=== PATIENT | female | born 1950 | race Caucasian/White ===

== ENCOUNTER 2017-03-11 05:33 | Emergency (ER) | payer MEDICARE, BC ==
[2017-03-11] MEDS ORDERED: cloNIDine 0.1 MG Tab PO ONE (06:08)
--- NOTE | 2017-03-11 06:23 | EDM.PDOC ---
ED HPI GENERAL MEDICAL PROBLEM - General Chief Complaint: ENT Problem Stated Complaint: BLOODY NOSE Time Seen by Provider: 03/11/17 06:05 Source of Information: Reports: Patient, Old Records History Limitations: Reports: No Limitations - History of Present Illness INITIAL COMMENTS - FREE TEXT/NARRATIVE: 66 yo female on both aspirin and Plavix with a PHx of epistaxis presents with a nosebleed that began at home about 0430h today. Had blood out of both nostrils and posteriorly. Most of the blood was from the R anterior nares. Thinks she coughed to start the bleeding. Has not missed any of her BP meds. A recent BP was in the upper 130's(one week ago). Onset: Today Onset Date: 03/11/17 Onset Time: 04:30 Duration: Minutes: Location: Reports: Face (nares) Quality: Reports: Other (no pain) Severity: Moderate Improves with: Reports: Other (direct pressure.) Worsens with: Reports: Other (unknown) Context: Reports: Other (on Plavix and ASA and has had nosebleeds before. 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 (see below) (direct pressure.) - Related Data Allergies Allergy/AdvReac Type Severity Reaction Status Date / Time fentanyl Allergy Diaphoresis Verified 03/11/17 05:48 metoprolol tartrate Allergy heartburn Verified 03/11/17 05:48 [From Lopressor] Sulfa (Sulfonamide Allergy Hives Verified 03/11/17 05:48 Antibiotics) Home Meds: Home Meds Albuterol Sulfate [Ventolin Hfa] 2 puff IH Q4H PRN 11/13/13 [History] Aspirin 325 mg PO DAILY 11/13/13 [History] Atenolol 100 mg PO BID 11/13/13 [History] Citalopram Hydrobromide [Celexa] 40 mg PO DAILY 11/13/13 [History] Clopidogrel [Plavix] 75 mg PO DAILY 11/13/13 [History] Hydrochlorothiazide 12.5 mg PO DAILY 11/13/13 [History] Levothyroxine Sodium [Synthroid] 25 mcg PO ACBRK 11/13/13 [History] Lisinopril 5 mg PO DAILY 11/13/13 [History] Simvastatin [Zocor] 40 mg PO BEDTIME 11/13/13 [History] Past Medical History Cardiovascular History: Reports: High Cholesterol, Hypertension, Stents Other Cardiovascular History: CAROTID ENDARTERECTOMY 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: Other OB/BYN History: C SECTION Psychiatric History: Reports: Depression Endocrine/Metabolic History: Reports: Hypoparathyroidism - Infectious Disease History Infectious Disease History: Reports: Chicken Pox, Measles - Past Surgical History HEENT Surgical History: Reports: Tonsillectomy Cardiovascular Surgical History: Reports: Coronary Artery Stent GI Surgical History: Reports: Cholecystectomy Social & Family History - Tobacco Use Smoking Status *Q: Current Every Day Smoker Years of Tobacco use: 50 Packs/Tins Daily: 1 Second Hand Smoke Exposure: Yes - Alcohol Use Days Per Week of Alcohol Use: 0 - Recreational Drug Use Recreational Drug Use: No ED ROS ENT - Review of Systems Review Of Systems: See Below Constitutional: Reports: No Symptoms HEENT: Reports: Nosebleed. Denies: Nose Pain Respiratory: Reports: No Symptoms Cardiovascular: Reports: No Symptoms GI/Abdominal: Reports: No Symptoms : Reports: No Symptoms Skin: Reports: No Symptoms Neurological: Reports: No Symptoms ED EXAM, ENT - Physical Exam Exam: See Below Exam Limited By: No Limitations General Appearance: Alert, WD/WN, No Apparent Distress Eye Exam: Bilateral Eye: Normal Inspection Ears: Normal External Exam, Normal Canal, Hearing Grossly Normal Nose: Dried Blood (R nares only). No: Nasal Deformity, Nasal Swelling, Nasal Tenderness, Nasal Ecchymosis Mouth/Throat: Normal Inspection, Normal Lips, Normal Oropharynx Head: Atraumatic, Normocephalic Neck: Normal Inspection Course - Vital Signs Text/Narrative:: Clonidine 0.1 mg po, Bacitracin in R nares, Viscous xylocaine 10 ml R nares. Rhino Rocket 7.5 cm placed. Last Recorded V/S: Last Vital Signs Temp 36.2 C 03/11/17 06:44 Pulse 65 03/11/17 06:44 Resp 15 03/11/17 06:44 BP 135/61 03/11/17 06:44 Pulse Ox 96 03/11/17 06:44 - Orders/Labs/Meds Orders: Active Orders 24 hr Category Date Time Status Lidocaine 2% [Xylocaine 2% Viscous] Med 03/11/17 06:51 Once 15 ml PO ONETIME ONE Meds: Medications Discontinued Medications Generic Name Dose Route Start Last Admin Trade Name Freq PRN Reason Stop Dose Admin Bacitracin 1 dose 03/11/17 06:30 03/11/17 06:37 Bacitracin Oint 1 Gm TOP 03/11/17 06:31 1 dose ONETIME ONE Administration Clonidine HCl 0.1 mg 03/11/17 06:08 03/11/17 06:11 Catapres PO 03/11/17 06:09 0.1 mg ONETIME ONE Administration Hydrogen Peroxide 3 ml 03/11/17 06:34 03/11/17 06:38 Proxacol 3% TOP 03/11/17 06:35 3 ml ONETIME PRN Administration Bleeding Departure - Departure Time of Disposition: 07:15 Disposition: Home, Self-Care 01 Condition: Good Clinical Impression: Epistaxis - Discharge Information Forms: ED Department Discharge - My Orders Last 24 Hours: My Active Orders 03/11/17 06:51 Lidocaine 2% [Xylocaine 2% Viscous] 15 ml PO ONETIME ONE - Assessment/Plan Last 24 Hours: My Active Orders 03/11/17 06:51 Lidocaine 2% [Xylocaine 2% Viscous] 15 ml PO ONETIME ONE
[2017-03-11] MEDS ORDERED: Bacitracin Oint 1 GM U/D Packet TOP ONE (06:30)
[2017-03-11] MEDS ORDERED: Hydrogen Peroxide 3% Top Soln 240 ML Bottle TOP PRN (06:34)
[2017-03-11 06:46] VITALS: BP 135/61
[2017-03-11] MEDS ORDERED: Lidocaine 2% Viscous Solution 15 ML Cup PO ONE (06:51)
== END 2017-03-11 07:22 | disposition home or self-care (01) ==
LOC: JP.ED 05:33
DX: R04.0 Epistaxis (principal); I10 Essential (primary) hypertension; E78.00 Pure hypercholesterolemia, unspecified; F32.9 Major depressive disorder, single episode, unspecified; E20.9 Hypoparathyroidism, unspecified; F17.210 Nicotine dependence, cigarettes, uncomplicated; Z88.8 Allergy status to other drugs, medicaments and biological substances; Z88.2 Allergy status to sulfonamides; Z79.82 Long term (current) use of aspirin; Z79.01 Long term (current) use of anticoagulants; Z79.899 Other long term (current) drug therapy; Z98.890 Other specified postprocedural states; Z90.49 Acquired absence of other specified parts of digestive tract; Z95.5 Presence of coronary angioplasty implant and graft
CPT/HCPCS: 30903; 99283; A9270; 30901; 99282-25

== ENCOUNTER 2017-11-23 08:47 | Emergency (ER) | payer MEDICARE, BC ==
[2017-11-23 08:58] VITALS: BP 183/65
--- NOTE | 2017-11-23 09:38 | EDM.PDOC ---
ED HPI GENERAL MEDICAL PROBLEM - General Chief Complaint: ENT Problem Stated Complaint: NOSE BLEED Time Seen by Provider: 11/23/17 09:10 Source of Information: Reports: Patient History Limitations: Reports: No Limitations - History of Present Illness INITIAL COMMENTS - FREE TEXT/NARRATIVE: 67-year-old female who has had a past history of epistaxis problems developed a right-sided nosebleed this morning and after it was persistent for almost 2 hours she came in to have it treated. On arrival the clots were blown out and external pressure was applied. She's had no lightheadedness, headache, fever or other complaints. No recent trauma. She is not on anticoagulation. Onset: Sudden Duration: Hour(s): (Within the last 2-1/2-3 hours) Location: Reports: Other (Right nares) Severity: Moderate - Related Data Allergies Allergy/AdvReac Type Severity Reaction Status Date / Time fentanyl Allergy Diaphoresis Verified 11/23/17 09:00 metoprolol tartrate Allergy heartburn Verified 11/23/17 09:00 [From Lopressor] Sulfa (Sulfonamide Allergy Hives Verified 11/23/17 09:00 Antibiotics) Home Meds: Home Meds Albuterol Sulfate [Ventolin Hfa] 2 puff IH Q4H PRN 11/13/13 [History] Atenolol 100 mg PO BID 11/13/13 [History] Citalopram Hydrobromide [Celexa] 40 mg PO DAILY 11/13/13 [History] Clopidogrel [Plavix] 75 mg PO DAILY 11/13/13 [History] Hydrochlorothiazide 12.5 mg PO DAILY 11/13/13 [History] Levothyroxine Sodium [Synthroid] 25 mcg PO ACBRK 11/13/13 [History] Lisinopril 7.5 mg PO DAILY 11/13/13 [History] Simvastatin [Zocor] 40 mg PO BEDTIME 11/13/13 [History] Aspirin 1 tab PO DAILY 11/23/17 [History] Past Medical History Cardiovascular History: Reports: High Cholesterol, Hypertension, Stents Other Cardiovascular History: CAROTID ENDARTERECTOMY 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 OB/BYN History: C SECTION Psychiatric History: Reports: Depression Endocrine/Metabolic History: Reports: Hypoparathyroidism - Infectious Disease History Infectious Disease History: Reports: Chicken Pox, Measles - Past Surgical History HEENT Surgical History: Reports: Tonsillectomy Cardiovascular Surgical History: Reports: Carotid Endarterectomy, Coronary Artery Stent GI Surgical History: Reports: Cholecystectomy Female Surgical History: Reports: Section Social & Family History - Tobacco Use Smoking Status *Q: Heavy Tobacco Smoker Years of Tobacco use: 50 Packs/Tins Daily: 0.7 Second Hand Smoke Exposure: Yes - Alcohol Use Days Per Week of Alcohol Use: 0 - Recreational Drug Use Recreational Drug Use: No ED ROS ENT - Review of Systems Review Of Systems: See Below Constitutional: Denies: Fever, Chills HEENT: Denies: Ear Pain Respiratory: Denies: Shortness of Breath Cardiovascular: Denies: Chest Pain GI/Abdominal: Denies: Nausea, Vomiting ED EXAM, ENT - Physical Exam Exam: See Below Exam Limited By: No Limitations General Appearance: Alert, No Apparent Distress Nose: Other (The external pressure was removed and nares examined. A small amount of irritation and friability was noted to the inferior turbinate on the right side but no active bleeding was present. She was able to move air freely through the nose bilaterally. She was observed for 20 minutes and no bleeding recurred so she was discharged.) Respiratory/Chest: No Respiratory Distress Course - Vital Signs Last Recorded V/S: Last Vital Signs Temp 97.0 F 11/23/17 08:56 Pulse 73 11/23/17 08:56 Resp 18 11/23/17 08:56 BP 183/65 H 11/23/17 08:56 Pulse Ox 97 11/23/17 08:56 - Re-Assessments/Exams Free Text/Narrative Re-Assessment/Exam: 11/23/17 09:36 If bleeding recurs, she was recommended to use Mauro-Synephrine or Afrin and external pressure, and can return if bleeding remains uncontrolled Departure - Departure Time of Disposition: 09:54 Disposition: Home, Self-Care 01 Condition: Good Clinical Impression: Epistaxis - Discharge Information Instructions: Nosebleed, Adult, [id number] Referrals: PCP,None [Ordering Only Provider] - Forms: ED Department Discharge Care Plan Goals: He bleeding recurs, try a spray of Afrin or Mauro-Synephrine and external pressure. If you cannot get control of the bleeding, return to the emergency room at any time for further treatment.
== END 2017-11-23 09:54 | disposition home or self-care (01) ==
LOC: JP.ED 08:47
DX: R04.0 Epistaxis (principal); E78.00 Pure hypercholesterolemia, unspecified; I10 Essential (primary) hypertension; E20.9 Hypoparathyroidism, unspecified; F17.210 Nicotine dependence, cigarettes, uncomplicated; Z88.8 Allergy status to other drugs, medicaments and biological substances; Z88.2 Allergy status to sulfonamides; Z79.899 Other long term (current) drug therapy; Z79.82 Long term (current) use of aspirin
CPT/HCPCS: 99283

== ENCOUNTER 2024-12-10 11:52 | Emergency (ER) | payer BC, MEDICARE ==
[2024-12-10 13:24] VITALS: BP 145/47; PULSE 84
[2024-12-10] MEDS ORDERED: Tranexamic Acid 1,000 MG/10 ML Vial TOP ONE (13:44)
== END 2024-12-10 14:19 | disposition home or self-care (01) ==
LOC: JP.ED 11:52
DX: R04.0 Epistaxis (principal); E78.00 Pure hypercholesterolemia, unspecified; I10 Essential (primary) hypertension; Z95.5 Presence of coronary angioplasty implant and graft; F17.210 Nicotine dependence, cigarettes, uncomplicated; Z79.899 Other long term (current) drug therapy; Z88.8 Allergy status to other drugs, medicaments and biological substances; Z88.2 Allergy status to sulfonamides; Z79.51 Long term (current) use of inhaled steroids; Z79.890 Hormone replacement therapy; Z79.02 Long term (current) use of antithrombotics/antiplatelets; Z79.82 Long term (current) use of aspirin
CPT/HCPCS: 99283